=== PATIENT | male | born 1975 | race Caucasian/White ===

== ENCOUNTER 2017-04-02 13:33 | Emergency (ER) | payer OTHER ==
[2017-04-02 13:44] VITALS: TEMP 97.3
[2017-04-02] MEDS ORDERED: HYDROmorphone 1 MG/ML 1 ML SYRINGE IVP STA ×2 (13:58→15:20)
[2017-04-02] MEDS ORDERED: RX INFO: IV CONTRAST WAS GIVEN 1 EACH MISC MISCELLANE PRN (13:58)
[2017-04-02] MEDS ORDERED: ONDANSETRON 4 MG/2 ML VIAL IVP STA (13:58)
--- NOTE | 2017-04-02 14:04 | ED ---
General Adult HPI - General Chief complaint: Trauma Stated complaint: Fell 6-7 ft Time Seen by Provider: 04/02/17 13:50 Source: patient, RN notes reviewed Mode of arrival: wheelchair Limitations: no limitations - History of Present Illness Initial comments: This a 41-year-old male presents emergency Department chief complaint of back pain, right flank and side pain. Patient states that he was on a tailgate trying to pull out the truck bed liner and states that he fell backwards. Patient states that he fell on the concrete. Patient states she has severe low back, right flank pain. Patient points right over the right kidney region. He states he has no abdominal pain denies any nausea, vomiting, diarrhea. Denies any head injury no LOC denies any neck or upper extremities injuries. Patient states cannot get comfortable the pain is unbearable. Patient states that his never had any issues like this in the past and patient offers no other complaints. Patient denies any bowel or bladder incontinence or retention. - Related Data Home Medications Medication Instructions Recorded Confirmed No Known Home Medications [No 04/02/17 04/02/17 Known Home Medications] Previous Rx's Medication Instructions Recorded HYDROcodone/APAP 7.5-325MG [[place] 1 tab PO Q6HR PRN #30 tab 04/02/17 7.5-325] Allergies Allergy/AdvReac Type Severity Reaction Status Date / Time No Known Allergies Allergy Verified 04/02/17 13:58 Review of Systems ROS Statement: Those systems with pertinent positive or pertinent negative responses have been documented in the HPI. ROS Other: All systems not noted in ROS Statement are negative. Past Medical History Past Medical History: No Reported History History of Any Multi-Drug Resistant Organisms: None Reported Past Surgical History: No Surgical Hx Reported Past Psychological History: No Psychological Hx Reported Smoking Status: Current every day smoker Past Alcohol Use History: Occasional Past Drug Use History: Marijuana General Exam Limitations: no limitations General appearance: alert, in no apparent distress Head exam: Present: atraumatic, normocephalic, normal inspection Respiratory exam: Present: normal lung sounds bilaterally. Absent: respiratory distress, wheezes, rales, rhonchi, stridor Cardiovascular Exam: Present: regular rate, normal rhythm, normal heart sounds. Absent: systolic murmur, diastolic murmur, rubs, gallop, clicks GI/Abdominal exam: Present: soft, normal bowel sounds. Absent: distended, tenderness, guarding, rebound, rigid Extremities exam: Present: normal inspection, full ROM, normal capillary refill. Absent: tenderness, pedal edema, joint swelling, calf tenderness Back exam: Present: normal inspection, full ROM, tenderness (Moderate upper lumbar tenderness), CVA tenderness (R), paraspinal tenderness, vertebral tenderness. Absent: CVA tenderness (L) Neurological exam: Present: alert, oriented X3, CN II-XII intact, reflexes normal. Absent: motor sensory deficit Skin exam: Present: warm, dry, intact, normal color. Absent: rash Course Vital Signs 04/02/17 04/02/17 13:40 14:51 Temperature 97.3 F L Pulse Rate 60 78 Respiratory 18 17 Rate Blood Pressure 117/87 133/58 O2 Sat by Pulse 99 98 Oximetry Medical Decision Making - Medical Decision Making 41-year-old male resent for fall with complaints of back pain. Patient has T12 fracture. He has no tenderness above the T12. Patient states compression fractures 5%. Patient be given pain medication up with Dr. Pinto. Patient has no neurological deficits. Patient was given return parameters. - Lab Data Result diagrams: 04/02/17 14:10 04/02/17 14:10 Lab Results 04/02/17 04/02/17 Range/Units 14:10 14:10 WBC 12.7 H (3.8-10.6) k/uL RBC 4.60 (4.30-5.90) m/uL Hgb 15.0 (13.0-17.5) gm/dL Hct 42.7 (39.0-53.0) % MCV 92.8 (80.0-100.0) fL MCH 32.5 (25.0-35.0) pg MCHC 35.1 (31.0-37.0) g/dL RDW 13.2 (11.5-15.5) % Plt Count 247 (150-450) k/uL Neutrophils % 85 % Lymphocytes % 8 % Monocytes % 4 % Eosinophils % 2 % Basophils % 0 % Neutrophils # 10.8 H (1.3-7.7) k/uL Lymphocytes # 1.0 (1.0-4.8) k/uL Monocytes # 0.5 (0-1.0) k/uL Eosinophils # 0.2 (0-0.7) k/uL Basophils # 0.1 (0-0.2) k/uL Sodium 141 (137-145) mmol/L Potassium 4.1 (3.5-5.1) mmol/L Chloride 107 (98-107) mmol/L Carbon Dioxide 25 (22-30) mmol/L Anion Gap 9 mmol/L BUN 14 (9-20) mg/dL Creatinine 0.82 (0.66-1.25) mg/dL Est GFR (MDRD) Af Amer >60 (>60 ml/min/1.73 sqM) Est GFR (MDRD) Non-Af >60 (>60 ml/min/1.73 sqM) Glucose 81 (74-99) mg/dL Calcium 9.1 (8.4-10.2) mg/dL Disposition Clinical Impression: Fall, T12 compression fracture Disposition: HOME SELF-CARE Condition: Stable Instructions: Vertebral Compression Fracture (ED) Additional Instructions: Please return to the Emergency Department if symptoms worsen or any other concerns. Prescriptions: HYDROcodone/APAP 7.5-325MG [[place] 7.5-325] 1 tab PO Q6HR PRN #30 tab PRN Reason: Pain Referrals: None,Stated [Primary Care Provider] - 1-2 days Deep Madrid DO [Doctor of Osteopathic Medicine] - 1-2 days Time of Disposition: 15:33
[2017-04-02 14:19] LABS: Basophils # (A) 0.1 k/uL (0-0.2); Basophils % (A) 0 %; CH 32.2; CHCM 34.8; Eosinophils # (A) 0.2 k/uL (0-0.7); Eosinophils % (A) 2 %; HCT 42.7 % (39.0-53.0); Luc # (Auto) 0.08; Luc % (Auto) 1; Lymphocytes % (A) 8 %; MCH 32.5 pg (25.0-35.0); MCHC 35.1 g/dL (31.0-37.0); MCV 92.8 fL (80.0-100.0); Mean Platelet Volume 10.1; Monocytes # (A) 0.5 k/uL (0-1.0); Monocytes % (A) 4 %; Neutrophils # (A) 10.8 k/uL (1.3-7.7); Neutrophils % (A) 85 %; RDW 13.2 % (11.5-15.5); WBC 12.7 k/uL (3.8-10.6); WBC (Perox) 12.61
[2017-04-02 14:33] LABS: Anion Gap 9 mmol/L; Blood Urea Nitrogen 14 mg/dL (9-20); Calcium 9.1 mg/dL (8.4-10.2); Carbon Dioxide 25 mmol/L (22-30); Chloride 107 mmol/L (98-107); Glucose 81 mg/dL (74-99); Non-African American GFR(MDRD) >60 (>60 ml/min/1.73 sqM); Potassium 4.1 mmol/L (3.5-5.1); Sodium 141 mmol/L (137-145)
--- NOTE | 2017-04-02 14:47 | CT ---
EXAMINATION TYPE: CT abdomen pelvis w con DATE OF EXAM: 04/02/2017 COMPARISON: 12/15/2011 HISTORY: Patient complains of low posterior back pain post fall today. CT DLP: 652.3 mGycm Automated exposure control for dose reduction was used. TECHNIQUE: Helical acquisition of images was performed from the lung bases through the pelvis. CONTRAST: Performed without Oral Contrast and with IV Contrast, patient injected with 100 mL of Omnipaque 300. FINDINGS: There is mild subsegmental atelectasis at the lung bases. There is no pleural effusion. Heart appears enlarged. There is a 2 cm hypodensity in the right lobe of the liver that is probably a hemangioma. Spleen and pancreas appear normal. Gallbladder appears normal. Bile ducts are not dilated. There is no adrenal mass. Kidneys have normal size and contour. There is no hydronephrosis. There is no retroperitoneal adenopathy. There is no ascites. Appendix appears normal. I see no intestinal wall thickening. There are no dilated loops. Bladder distends smoothly. There is no sign of a pelvic mass . There is slight depression of the anterior superior endplate of T12 that could be an acute fracture. There is 5% loss of height. There are spondylotic changes at L3-4. Posterior elements are intact. IMPRESSION: MINIMAL SUBSEGMENTAL ATELECTASIS AT THE LUNG BASES. BORDERLINE CARDIOMEGALY. THERE IS A MINIMAL ACUTE COMPRESSION FRACTURE OF T12 COMPARED TO OLD EXAM. NORMAL APPENDIX. Small low-density area in the liver is probably a hemangioma and probably present on old exam.
[2017-04-02 14:55] VITALS: BP 133/58; PULSE 78; RESP 17
== END 2017-04-02 15:58 | disposition home or self-care (01) ==
LOC: EC 13:33
DX: S22.088A Other fracture of T11-T12 vertebra, initial encounter for closed fracture (principal); F17.200 Nicotine dependence, unspecified, uncomplicated; W17.89XA Other fall from one level to another, initial encounter
CPT/HCPCS: 36415; 80048; 85025; 74177; 99284; 96374; 96375; 96376; J2405; J1170; Q9967

== ENCOUNTER → 2017-04-14 | Outpatient (CLI) | payer OTHER ==
--- NOTE | 2017-04-14 15:32 | NM ---
EXAMINATION TYPE: NM bone/joint limited DATE OF EXAM: 04/14/2017 COMPARISON: thoracic spine x-rays from outside institution 04/11/[address] abdomen pelvis 04/02/2017 HISTORY: M48.54XA, thoracic compression fracture TECHNIQUE: After the intravenous administration of 23 mCi Tc 99m MDP. Images acquired 3 hours post injection. Multiple views of spine and pelvis are submitted. There is abnormal uptake within the superior endplate T-12. Soft tissue uptake is normal. Suspect s ome abnormal uptake involving the sacrum or posterior iliac bones bilaterally seen better on the post erior images. Suspect there may be some corresponding sclerosis in the posterior iliac bone on the ri ght greater than left on CT. IMPRESSION: Superior endplate fracture T-12. Findings within the sacrum and posterior iliac bones may be posttraumatic may be better delineated on MRI of the sacrum.
== END ==
LOC: RADNMMAIN 10:48
PROVIDERS: ATTEND Physical Medicine & Rehabilitation
DX: S22.089A Unspecified fracture of T11-T12 vertebra, initial encounter for closed fracture (principal)
CPT/HCPCS: 78300; A9503

== ENCOUNTER → 2021-08-25 | Outpatient (CLI) | payer OTHER ==
[2021-08-25 11:51] VITALS: BP 119/73; PULSE 86; RESP 18; TEMP 98.4
--- NOTE | 2021-08-25 12:16 | P.PAINCN ---
History of Present Illness - Reason for Consult Consult date: 08/25/21 Lumbar back pain - Chief Complaint Lumbar back pain - History of Present Illness Mr. Estrella is a 46 -year-old pleasant male came to the [facility] pain clinic for injured evaluation . Patient has ongoing pain for many years. Patient had multiple lumbar, lower thoracic intervention procedures with [facility] [place] . Patient had lumbar radiofrequency ablation 5 done . Last radiofrequency ablation was more than 6 months ago. Patient describes pain is aching, throbbing, constant type of pain. Pain is not radiating to his lower extremities. Patient tried physical therapy, actively doing exercises at home. Patient rated pain levels are 7 out of 10 in severity. With the help of medications pain levels are 3-5 out of 10 in severity. Activities making pain worse. Medications, resting, interventional procedures helping in relieving patient's pain. Patient pain some days better than others. Overall activities decreased secondary to pain. Because of the pain sometimes patient is feeling lack of sleep, interest, and energy. Denied any side effects with the medications. Denied any bowel or bladder problems at this time. He is not using any walking aids at this time Patient denies any suicidal or homicidal ideations intent or plan. Patient denies any auditory or visual hallucinations. Patient denied any red flag symptoms related to pain. Review of Systems All systems: negative Constitutional: Denies chills, Denies fever Eyes: denies blurred vision, denies pain Ears, nose, mouth and throat: Denies headache, Denies sore throat Cardiovascular: Denies chest pain, Denies shortness of breath Respiratory: Denies cough Gastrointestinal: Denies abdominal pain, Denies diarrhea, Denies nausea, Denies vomiting Musculoskeletal: Reports low back pain, Reports muscle cramps, Reports myalgias Integumentary: Denies pruritus, Denies rash Neurological: Denies numbness, Denies weakness Psychiatric: Denies anxiety, Denies depression Endocrine: Denies fatigue, Denies weight change Past Medical History Past Medical History: No Reported History Additional Past Medical History / Comment(s): Chronic back pain. History of Any Multi-Drug Resistant Organisms: None Reported Past Surgical History: No Surgical Hx Reported Additional Past Surgical History / Comment(s): Pain Procedures. Past Anesthesia/Blood Transfusion Reactions: No Reported Reaction Smoking Status: Current some day smoker - Past Family History Mother Family Medical History: No Reported History Medications and Allergies Home Medications Medication Instructions Recorded Confirmed Type HYDROcodone/APAP 7.5-325MG [[place] 1 tab PO BID PRN 08/23/21 08/25/21 Rx 7.5-325] Ibuprofen [Motrin] 800 mg PO TID 08/23/21 08/25/21 History Allergies Allergy/AdvReac Type Severity Reaction Status Date / Time No Known Allergies Allergy Verified 08/23/21 13:33 Physical Exam Vitals: Vital Signs Temp Pulse Resp BP Pulse Ox 08/25/21 11:29 98.4 F 86 18 119/73 97 General: Well-developed, well-nourished, no acute distress HEENT: Normocephalic, and atraumatic Neck: Supple, no neck swelling Psychiatric: Appropriate mood, and affect BULB BRANDER: No focal neurological deficits Musculoskeletal: Upper extremity: Normal strength, and range of motion. Sensation grossly intact Lower extremity: Normal strength, and normal skin range of motion, sensation grossly intact Lumbar spine: Paravertebral tenderness: positive Lumbar facet load test : positive Sacroiliac joint tenderness: Negative SLR test negative Multiple trigger points positive over lower lumbar, upper lumbar, and lower thoracic area Results Comments: MRI of the lumbar spine done on 03/21/2018 showed from [facility] [place] Severe disc desiccation at L1 L3 level. A history of T12 compression fracture healed Assessment and Plan Assessment: Lumbar spondylosis without myelopathy Myofascial pain syndrome Healed T12 compression fracture Plan: #1 Diagnoses, prognosis, and multiple treatment options including but not limited to physical therapy, interventional therapy, adjunct medication therapy, narcotic medication, and surgical options were discussed with the patient. And all questions were answered to the patient's satisfaction. #2 treatment plan agreement : Patient was thoroughly discussed regarding the treatment options, alternatives, and importance of exercises as tolerated. Patient clearly understood. #3 Patient was counseled on importance of regular exercise. Including alyx chi, aerobic exercises as tolerated. Which helps for chronic pain, and overall well- being. Patient also counseled regarding importance of weight control rolling chronic pain, and overall other health issues. By altering diet habits, minimizing sugar intake, and processed foods helps in minimizing Inflammation. Also discussed with the patient regarding intermittent fasting. Patient counseled regarding smoking associated with chronic pain, worsening inflammation, and smoking effects on liver, and medication metabolism. And encouraged to stop smoking. #4 investigations: MAPS- reviewed , urine drug test-not done #5 diagnostic tests: None #6 consultation : None # 7 interventional procedures: Bilateral lumbar L4-L5, and L5-S1 medial branch radiofrequency ablation. Procedure, complications, alternatives discussed with the patient. #8 medications None from the pain clinic # 9patient recommended to continue TENS unit's, and percussion massage device #10 disposition: scheduled to follow up with pain clinic in 4 weeks duration. Time with Patient: Greater than 30 PQRS Measure Charge Sheet Measure #130: Documentation of Current Meds in Medical Chart: Patient's medications documented in chart Measure #226: Tobacco Use: Screen & Cessation Intervention: Pt screened for tobacco use AND intervention given Measure #111: Pneumonia Vaccination: Pneumococcal vaccine NOT administered or p reviously given Measure #47: Advance Care Plan: Advance care planning discussed & documented, pt chose/unable to give Measure #412: Opioid Treatment Agreement: No documentation of signed opioid treatment agreement Measure #408: Opioid Therapy Follow-up Evaluation: Patient had NO f/u eval minimum every 3 months during opioid therapy Measure #317: Preventitive Care & Scrn High Bld Press & F/U: Normal blood pressure, f/u not required Measure #128: Body Mass Index (BMI) Screening & Follow-up: BMI documented within normal parameters Measure #131: Pain Assessment & Follow-up: Pain positive & plan documented Measure #431: Unhealthy Alcohol Use Preventative Care & Scrn: Patient not identified as an unhealthy alcohol user - Pain Location Lower Back Non-Pharmacological Interventions: Heat, Home Exercise, Inactivity, Physical Therapy, Position/Reposition, Stretching Pharmacological Interventions: Block, Epidural, Medication, PRN Medication PQRS Narrative: Smoking Status Current every day smoker Blood Pressure 119/73 Pain Intensity [Lower Back] 7 Scale Used Numeric (1 - 10) Hx Alcohol Use (MH) Yes Home Medications: Ambulatory Orders HYDROcodone/APAP 7.5-325MG [[place] 7.5-325] 1 tab PO BID PRN 08/23/21 Ibuprofen [Motrin] 800 mg PO TID 08/23/21
== END ==
LOC: PNWHC3 11:24
DX: M47.816 Spondylosis without myelopathy or radiculopathy, lumbar region (principal); M79.18 Myalgia, other site; F17.200 Nicotine dependence, unspecified, uncomplicated; Z87.81 Personal history of (healed) traumatic fracture
CPT/HCPCS: 99211